=== PATIENT | female | born 1965 | race Caucasian/White ===

== ENCOUNTER → 2017-07-30 10:00 | Outpatient (CLI) | payer OTHER, SELFPAY ==
--- NOTE | 2017-07-30 10:08 | HPBI_ITS ---
STEREOTACTIC CORE BIOPSY REASON FOR EXAM: Female, 51 years old. Microcalcifications in the upper outer portion of the left breast. PERTINENT HISTORY: Non-contributory. COMPARISON: Comparison is made with prior EXAMINATION of May 07, 2017. TECHNIQUE: (All elements of maximal sterile barrier technique followed, including US elements as applicable) Upon arrival to the breast imaging department the patient's identification was confirmed and the LEFT breast was marked according to time-out protocol. Stereotactic core biopsy and clip placement, to include potential risks and complications, was explained in full to the patient. Written and verbal consent were obtained prior to initiation of the procedure. The patient was placed in prone position on the stereotactic biopsy table with the LEFT breast in cranial caudal compression. [employer] and stereotactic views were then obtained for targeting. The LEFT breast was prepped and draped in standard sterile fashion and local anesthesia was obtained with 1% buffered lidocaine. A small dermatotomy was then made to introduce the core biopsy needle. Multiple core samples were obtained with a 8 gauge vacuum assisted core biopsy needle. The specimen's were radiographed to determine the presence of calcifications and submitted in formalin for pathology. A titanium clip was then deployed into the biopsy cavity. Upon completion of the procedure hemostasis was obtained and sterile dressing was applied. The patient tolerated the entire procedure without immediate complication and was discharged from the breast imaging department in good condition. HPBI/Stereo Breast Biopsy [facility] IMPRESSION: Stereotactic core biopsy for microcalcifications in the LEFT breast without complication. Electronically Signed: Tera Alcantar MD at 12:14 EDT Tel [phone], Service support ,
== END ==
PROVIDERS: Family Provider Nurse Practitioner Family; PCP Nurse Practitioner Family; Visit Provider Nurse Practitioner Family
DX: N60.12 Diffuse cystic mastopathy of left breast (principal); N60.92 Unspecified benign mammary dysplasia of left breast; R92.0 Mammographic microcalcification found on diagnostic imaging of breast
CPT/HCPCS: 19081; 88305; J7050; A4648